=== PATIENT | female | born 1965 | race Caucasian/White ===

== ENCOUNTER → 2020-07-05 | Outpatient (CLI) | payer OTHER | LOC: M.RAD 11:44 | PROVIDERS: ATTEND Internal Medicine | DX: M25.475 Effusion, left foot (principal); M25.474 Effusion, right foot; M77.52 Other enthesopathy of left foot and ankle; M77.51 Other enthesopathy of right foot and ankle; M47.814 Spondylosis without myelopathy or radiculopathy, thoracic region; M06.9 Rheumatoid arthritis, unspecified ==